=== PATIENT | female | born 1990 | race Caucasian/White ===

== ENCOUNTER 2016-06-10 20:15 | Emergency (ER) | payer OTHER ==
[~2016-06-10] VITALS: Ht 157.5 cm; Wt 45.0 kg
[2016-06-10 20:17] VITALS: TEMP 36.6; Ht 157.5 cm; Wt 45.0 kg
[2016-06-10] MEDS ORDERED: ESTRADIOL PO (20:37)
[2016-06-10] MEDS ORDERED: FAMOTIDINE IV INJ 20 MG in DEXTROSE 5% 100ML 100 ML IV STA (20:49)
[2016-06-10] MEDS ORDERED: SODIUM CHLORIDE 0.9% 1000ML 1,000 ML IV STA (20:49)
[2016-06-10] MEDS ORDERED: DiphenhydrAMINE HCL 50 MG/ML VIAL IV STA (20:49)
[2016-06-10 22:08] VITALS: BP 126/74; PULSE 96; O2SAT 98
[2016-06-10] MEDS ORDERED: EPP3/2 IM (22:11)
--- NOTE | 2016-06-10 22:11 | EMERGENCY ROOM VISIT NOTE ---
History First contact with patient: 20:23 Chief Complaint: ALLERGIC REACTION Stated Complaint: POSSIBLE ALLERGIC REACTION TO A BEER Nursing Triage Summary: Patient states that she was at a [place] [employer], states that she took a sip of beer and then a sip of water, immediately felt like her throat was getting tight and swollen immediately afterwards. Reports "My friend actually had to give me the heimlich because I thought I was aspirating the water." Patient reports that nothing came up with the heimlich remover. Patient denies any other s/s at this time. States that when it initially happened she felt a tightness across her chest. Denies SOB presently. Throat is clear. Uvula appears slightly swollen. No rash or hives noted. History of Present Illness The patient is a 26 year old female who presents to the Emergency Room with complaints of a possible allergic reaction. The patient states that she was at a bar and had a sip of her boyfriends beer and began to feel a strange sensation in her throat. She states that she drank water and was choking on the water. She reports that her boyfriend gave her the Heimlich maneuver. She was seen at urgent care for the symptoms and given a steroid injection with some improvement. She denies any rashes, nausea, vomiting, abdominal pain or difficulty breathing. She states that she still does have a strange sensation in her throat with swallowing. She denies any history of allergic reactions. Review of Systems A complete 10-point Review of Systems was discussed with the patient, with pertinent positives and negatives listed in the History of Present Illness. All remaining Review of Systems questions can be considered negative unless otherwise specified. Social History Smoking Status: Never Smoker Current/Historical Medications Scheduled Epinephrine (Epipen), 0.3 MG IM UD [Estradiol], 1 TAB PO QAM Allergies Uncoded Allergies: WHOOPING COUGH VACCINE (Allergy, Intermediate, Fevers, 06/10/16) Physical Exam Vital Signs Date Time Temp Pulse Resp B/P Pulse Ox O2 Delivery O2 Flow Rate FiO2 06/10/16 22:08 96 20 126/74 98 Room Air 06/10/16 21:07 100 Room Air 06/10/16 21:02 96 06/10/16 20:17 36.6 140 18 149/64 100 Room Air Physical Exam VITALS: Vitals are noted on the nurse's note and reviewed by myself. Vital signs stable. GENERAL: This is a 26-year-old female, in no acute distress, nondiaphoretic, well-developed well-nourished. SKIN: Capillary reflex less than 2 seconds. HEENT: Normocephalic. PERRLA. EOMI. Nares patent. Mucous membranes moist. Neck is supple without nuchal rigidity. HEART: Regular rate and rhythm without murmurs gallops or rubs. LUNGS: Clear to auscultation bilaterally without wheezes, rales or rhonchi. No retractions or accessory muscle use. ABDOMEN: Positive bowel sounds x 4. Soft, nontender to palpation. NEURO: Patient was alert and oriented to person place and time. Medical Decision & Procedures Medications Administered Medications (Trade) Dose Ordered Sig/Annabel Route Start Time Stop Time Status Last Admin Dose Admin Sodium Chloride (Nss 1000ml) 1,000 ml @ 999 mls/hr Q1H1M STAT IV 06/10/16 20:49 06/10/16 21:49 DC 06/10/16 21:07 999 MLS/HR Diphenhydramine HCl 50 mg 50 mg NOW STAT IV 06/10/16 20:49 06/10/16 20:50 DC 06/10/16 21:07 50 MG Famotidine/ Dextrose (Pepcid IV Inj/ D5 100ml) 102 ml @ 200 mls/hr NOW STAT IV 06/10/16 20:49 06/10/16 21:19 DC 06/10/16 20:49 200 MLS/HR Medical Decision Differential diagnosis includes allergic reaction, anaphylaxis, among others. The patient was evaluated as above. Labs were drawn and IV access was obtained. Imaging studies were performed and read by radiology as above. The patient was medicated with 50 mg Benadryl IV, 20 mg famotidine IV, and 1 L normal saline solution. The patient was reassessed multiple times during their stay in the emergency department and remained in stable condition. The patient is a 26-year-old female who presents today complaining of a possible allergic reaction. I am not convinced that this was truly an allergic reaction. The patient has no signs of anaphylaxis on examination. She was given Benadryl and Pepcid IV and did report improvement. She was given a prescription for an EpiPen in case she does have significant allergic reactions in the future. She was instructed to take Benadryl and Zantac at home. She will return for any worsening or new/concerning symptoms. Based on the patient's presentation, lab results, and imaging studies, I feel the patient is stable for outpatient treatment. Discharge instructions were reviewed with the patient. The patient verbalized understanding of my assessment and treatment plan and was discharged home in good condition. Impression Primary Impression: Allergic reaction Departure Information Dispostion Home / Self-Care Condition GOOD Prescriptions Epinephrine (EPIPEN) 0.3 Mg/0.3 Ml Inj 0.3 MG IM UD, #1 BOX 1 Refill Prov: Amee Chau .TODD 06/10/16 Referrals Aron Cruz M.D. (PCP) Patient Instructions [facility] Additional Instructions You have been treated in the Emergency Department for a possible Allergic Reaction. You have been treated and monitored in the Emergency Department appropriately. You should take Benadryl (diphenhydramine) 25-50 mg orally every 4-6 hours for the next 5-7 days. This medication is [id number]-rywvnja and you will NOT need a prescription to purchase this at your local pharmacy. You should continue taking the Benadryl for the COMPLETION of the 5-7 days. This is to prevent a rebound allergic reaction in the event that allergens are still present in your system. You should take Zantac (ranitidine) 75 mg orally once daily for the next 7 days. This medication is prcy-wzi-kgsdbon and you will NOT need a prescription to purchase this at your local pharmacy. You should continue taking the Zantac for the COMPLETION of the 7 days. This is to prevent a rebound allergic reaction in the event that allergens are still present in your system. You have been prescribed an EpiPen to be used in the case of an Emergency. Please read the packet you have been given and ask your pharmacist for instructions on proper administration. If you begin to experience the symptoms that brought you to the Emergency Department today, you should give yourself the injection and then report IMMEDIATELY to the Emergency Department for further evaluation and treatment. As with every Emergency Department visit, you should follow-up with your primary care provider in 2-3 days for reevaluation. Return to the Emergency Department if your current symptoms worsen despite treatment course outlined above, or if you develop any of the following symptoms : wheezing, tongue or face swelling, tightness in your throat, shortness of breath, or fainting. Problem Qualifiers Primary Impression: Allergic reaction Encounter type: initial encounter Qualified Codes: T78.40XA - Allergy, unspecified, initial encounter
== END 2016-06-10 22:15 | disposition home or self-care (01) ==
LOC: C.EDB 20:15 → C.EDC 22:15
DX: T78.40XA Allergy, unspecified, initial encounter (principal); X58.XXXA Exposure to other specified factors, initial encounter

== ENCOUNTER → 2016-09-10 | Outpatient (CLI) | payer OTHER ==
[~2016-09-10] MED LIST: EPP3/2 IM; ESTRADIOL PO
--- NOTE | 2016-09-10 14:58 | MAMMOGRAPHY REPORT ---
ULTRASOUND OF LEFT BREAST: 09/10/2016 CLINICAL HISTORY: 26-year-old woman presents for follow-up of a benign-appearing circumscribed oval parallel mass in the 7:00 left breast, 6 cm from the nipple seen on prior ultrasound. COMPARISON: Comparison is made to exam dated: 03/19/2016 ultrasound - [facility]. FINDINGS: Targeted ultrasound was performed in the 7:00 left breast to reevaluate the oval parallel circumscribed hypoechoic solid-appearing mass identified on prior ultrasound. In the 7:00 axis, 6 c m from the nipple, there is an oval parallel circumscribed hypoechoic solid-appearing mass measuring 4.6 x 2.7 x 5.8 mm. This has not significantly changed in size compared to the prior exam at which time it measured 5.2 x 2.8 x 6.3 mm. The patient reported pain while scanning over this mass durin g today's imaging. 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 Longer stability is needed a nd another six-month follow-up targeted left breast ultrasound is recommended. IMPRESSION: ACR-BI-RADS CATEGORY 3: PROBABLY BENIGN - FOLLOW-UP RECOMMENDED A benign-appearing circumscribed 6 mm mass in the 7:00 left breast has not significantly changed in size compared to the prior ultrasound. 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 Another six-month follow-up targeted left breast ultrasound is recommended to ensure longer stability. These results and recommendations were discussed with the patient at the time of the exam. Simran Rodríguez M.D. ay/:09/10/2016 12:26:49 Contract Clerk: Lexi STEARNS(Jasmyne)(Adan), [facility] letter sent: Follow Up Recommended 3 BI-RADS Code: ACR-BI-RADS Category 3: Probably Benign
== END | disposition home or self-care (01) ==
LOC: C.MAMM 10:31
PROVIDERS: ATTEND Obstetrics & Gynecology
DX: Z09 Encounter for follow-up examination after completed treatment for conditions other than malignant neoplasm (principal); N63 Unspecified lump in breast

== ENCOUNTER → 2017-08-14 | Outpatient (CLI) | payer OTHER ==
--- NOTE | 2017-08-14 12:41 | MAMMOGRAPHY REPORT ---
ULTRASOUND OF LEFT BREAST: 08/14/2017 CLINICAL HISTORY: Six-month follow-up of left breast mass. The patient reports no new lumps or other complaints. COMPARISON: Comparison is made to exams dated: 09/10/2016 ultrasound and 03/19/2016 ultrasound - [facility]. TECHNIQUE: Real-time targeted ultrasound of the left breast was performed. FINDINGS: Real-time, high-resolution targeted ultrasound was performed of the area of the previously seen left 7:00 breast mass. In the left 7:00 breast, 6 cm from the nipple, again noted is an oval ci rcumscribed parallel hypoechoic benign-appearing mass which measures 4 x 5 x 3 mm. The mass is stabl e in size and appearance dating back to at least the March 2016 exam, and is probably benign given approximately 1.5 years of stability and likely represents a fibroadenoma. IMPRESSION: ACR-BI-RADS CATEGORY 3: PROBABLY BENIGN - FOLLOW-UP RECOMMENDED Circumscribed benign-appearing 5 mm mass in the left 7:00 breast is stable dating back to at least March 2016 exam, and is probably benign given 1.5 years of stability and likely represents a fib roadenoma. Recommend follow-up targeted ultrasound in 1 year to confirm over 2 years of stability an d therefore benignity. The patient was verbally notified of the results. Maria C Keller M.D. ah/:08/14/2017 10:53:13 Pipe Layer: Abigail VELEZ)(Adan), [facility] letter sent: Follow Up Recommended 3 BI-RADS Code: ACR-BI-RADS Category 3: Probably Benign
== END | disposition home or self-care (01) ==
LOC: C.MAMM 10:33
PROVIDERS: ATTEND Obstetrics & Gynecology
DX: N63.24 Unspecified lump in the left breast, lower inner quadrant (principal)